=== PATIENT | female | born 1995 | race Hispanic/Latino ===

== ENCOUNTER 2019-04-16 02:47 | Emergency (ER) | payer BC ==
[2019-04-16] MEDS ORDERED: Lidocaine Viscous Sol 2% 15 ml UD Cup ONE (02:59)
[2019-04-16] MEDS ORDERED: Lidocaine 1% PF 5 ML VIAL ONE (03:01)
== END 2019-04-16 03:30 | disposition home or self-care (01) ==
LOC: ERS 02:47
DX: T16.1XXA Foreign body in right ear, initial encounter (principal)
CPT/HCPCS: 69200; J2001